=== PATIENT | female | born 1970 | race Caucasian/White ===

== ENCOUNTER 2018-01-29 20:47 | Emergency (ER) | payer OTHER ==
[~2018-01-29] VITALS: Ht 167.6 cm; Wt 179.2 kg
[~2018-01-29 20:47] MED LIST: ACETAZOLAMIDE250 MG PO; AMLODIPINE BESYL5 MG PO; GOOD NEIGHBOR L10 MG PO; HUMALOG100 U/ML SC; HYDROCHLOROTHIA25 M1 PO; HYDROXYZINE PAM25 MG PO; LISINOPRIL30 MG PO; NAPROSYN500 MG PO; NOVAPLUS SOLU-M40 MG IV; PROAIR HFA8.5 GM INH; PROTONIX40 M1 IV; ROZEREM8 MG PO; SERTRALINE HYD100 MG PO; SERTRALINE HYDR50 MG PO; SYMBICORT1 AE1 INH; TRAZODONE150 MG PO
[2018-01-29] MEDS ORDERED: TESSALON PERLE100 M1 PO (21:52)
== END 2018-01-29 22:16 | disposition home or self-care (01) ==
LOC: ED 20:47
DX: J40 Bronchitis, not specified as acute or chronic (principal); I11.0 Hypertensive heart disease with heart failure; I50.9 Heart failure, unspecified; E11.9 Type 2 diabetes mellitus without complications; E66.01 Morbid (severe) obesity due to excess calories; F17.200 Nicotine dependence, unspecified, uncomplicated; Z68.45 Body mass index [BMI] 70 or greater, adult; Z79.4 Long term (current) use of insulin; Z79.899 Other long term (current) drug therapy